=== PATIENT | male | born 1980 | race Caucasian/White ===

== ENCOUNTER 2017-06-16 13:14 | Emergency (ER) | payer MEDICAID, OTHER ==
[~2017-06-16] VITALS: Ht 190.5 cm; Wt 99.8 kg
[2017-06-16 13:16] VITALS: BP 142/77
[2017-06-16] MEDS ORDERED: LIDOcaine 1.5% w/epinephrine 1:200,000 5ml ampul IJ ONE (14:10)
[2017-06-16] MEDS ORDERED: CEPH-572 PO (14:38)
[2017-06-16] MEDS ORDERED: HYDR-3965 PO (14:52)
== END 2017-06-16 14:57 | disposition home or self-care (01) ==
LOC: ER 13:14
DX: L03.011 Cellulitis of right finger (principal); Z79.899 Other long term (current) drug therapy
CPT/HCPCS: 26011; 99284; A6449; J3490

== ENCOUNTER 2018-01-09 11:47 | Emergency (ER) | payer MEDICAID, OTHER ==
[~2018-01-09] VITALS: Ht 190.5 cm; Wt 97.0 kg
[2018-01-09 12:00] VITALS: BP 133/85
[2018-01-09] MEDS ORDERED: BACDS PO (12:35)
[2018-01-09] MEDS ORDERED: CEPH500C5 PO (12:35)
== END 2018-01-09 12:52 | disposition home or self-care (01) ==
LOC: ER 11:47
DX: A49.02 Methicillin resistant Staphylococcus aureus infection, unspecified site (principal); Z79.899 Other long term (current) drug therapy; Z87.81 Personal history of (healed) traumatic fracture
CPT/HCPCS: 99283

== ENCOUNTER 2019-01-04 20:38 | Emergency (ER) | payer MEDICAID, OTHER ==
[~2019-01-04] VITALS: Ht 190.5 cm; Wt 104.5 kg
[~2019-01-04 20:38] MED LIST: CEPH500C5 PO
[2019-01-04 20:41] VITALS: BP 170/102
[2019-01-04] MEDS ORDERED: ondansetron 4mg rapidly disintigrating tab PO ONE (20:45)
[2019-01-04] MEDS ORDERED: diphenhydrAMINE 50 mg/ml inj IM ONE (20:45)
== END 2019-01-04 21:41 ==
LOC: ER 20:38
DX: T63.441A Toxic effect of venom of bees, accidental (unintentional), initial encounter (principal); R11.0 Nausea; F15.90 Other stimulant use, unspecified, uncomplicated; Y92.89 Other specified places as the place of occurrence of the external cause
CPT/HCPCS: 93005; 96372; 99283; J1200

== ENCOUNTER 2022-09-15 09:44 | Emergency (ER) | payer MEDICAID, OTHER ==
[~2022-09-15] VITALS: Ht 190.5 cm; Wt 105.6 kg
[2022-09-15 10:12] VITALS: BP 134/91; PULSE 92; RESP 20; TEMP 98.6; O2SAT 97
[2022-09-15] MEDS ORDERED: FLUT16SP2 BOTHNARES (11:27)
[2022-09-15] MEDS ORDERED: AMOX-117 PO (11:27)
[2022-09-15] MEDS ORDERED: PRED20TA PO (18:33)
[2022-09-15] MEDS ORDERED: CEFI400C PO (18:46)
== END 2022-09-15 11:36 | disposition home or self-care (01) ==
LOC: ER 09:44
DX: J32.1 Chronic frontal sinusitis (principal); F15.10 Other stimulant abuse, uncomplicated; Z87.81 Personal history of (healed) traumatic fracture; Z79.899 Other long term (current) drug therapy
CPT/HCPCS: 99283

== ENCOUNTER 2022-09-15 16:53 | Emergency (ER) | payer MEDICAID ==
[~2022-09-15] VITALS: Ht 190.5 cm; Wt 109.1 kg
[~2022-09-15 16:53] MED LIST changes: +AMOX-117 PO; -CEPH500C5 PO; +FLUT16SP2 BOTHNARES
[2022-09-15 16:58] VITALS: TEMP 96.4
[2022-09-15] MEDS ORDERED: normal saline 1000ML IV soln IVB ONE (17:00)
[2022-09-15] MEDS ORDERED: famotidine/PF 10 mg/ml inj IV ONE (17:00)
[2022-09-15] MEDS ORDERED: methylPREDNISolone sod succ 125mg/2ml vial IV ONE (17:00)
[2022-09-15] MEDS ORDERED: PRED20TA PO (18:33)
[2022-09-15 18:42] VITALS: BP 134/85; PULSE 78; RESP 16; O2SAT 98
[2022-09-15] MEDS ORDERED: CEFI400C PO (18:46)
== END 2022-09-15 19:10 | disposition home or self-care (01) ==
LOC: ER 16:55
DX: T78.49XA Other allergy, initial encounter (principal); F15.10 Other stimulant abuse, uncomplicated; Z87.81 Personal history of (healed) traumatic fracture; Z88.0 Allergy status to penicillin; Z88.1 Allergy status to other antibiotic agents; Z79.899 Other long term (current) drug therapy; X58.XXXA Exposure to other specified factors, initial encounter; Z88.8 Allergy status to other drugs, medicaments and biological substances
CPT/HCPCS: 96361; 96374; 96375; 99284; J2930; J3490; J7030

== ENCOUNTER 2024-04-23 01:39 | Emergency (ER) | payer MEDICAID ==
[~2024-04-23] VITALS: Ht 190.5 cm; Wt 107.0 kg
[~2024-04-23 01:39] MED LIST changes: -AMOX-117 PO; +CEFI400C PO
[2024-04-23 01:48] VITALS: TEMP 98.3
[2024-04-23] MEDS ORDERED: CEPH-585 PO (03:07)
[2024-04-23] MEDS: cephalexin 250mg capsule PO ONE (03:20)
[2024-04-23] MEDS: triamcinolone acetonide 40mg/ml inj IM ONE (03:23)
[2024-04-23] MEDS: dexamethasone 4mg/ml inj IM ONE (03:24)
[2024-04-23 03:34] VITALS: BP 127/83; PULSE 76; RESP 16; O2SAT 96
== END 2024-04-23 03:35 | disposition home or self-care (01) ==
LOC: ER 01:40
DX: L23.7 Allergic contact dermatitis due to plants, except food (principal); F15.90 Other stimulant use, unspecified, uncomplicated; Z88.1 Allergy status to other antibiotic agents; Z79.52 Long term (current) use of systemic steroids; Z72.89 Other problems related to lifestyle
CPT/HCPCS: 96372; 99284; J1100; J3301